=== PATIENT | male | born 2005 | race Two or more races ===

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

== ENCOUNTER 2024-09-28 02:31 | Emergency (ER) | payer OTHER ==
[~2024-09-28] VITALS: Ht 180.3 cm; Wt 77.1 kg
[2024-09-28] MEDS ORDERED: METOCLOPRAMIDE HCL 5 MG/ML VIAL IM STA (03:17)
[2024-09-28] MEDS ORDERED: 0.9 % SODIUM CHLORIDE 1,000 ML IV STA (03:19)
[2024-09-28] MEDS ORDERED: PROMETHAZINE HCL 50 MG/ML AMPUL IM STA (03:19)
[2024-09-28] MEDS ORDERED: FAMOtidine 10 MG/ML (4ML VIAL) IV PUSH STA (03:20)
[2024-09-28] MEDS ORDERED: HYOSCYAMINE SULFATE 0.125 MG TAB.SUBL SL ONE (03:30)
== END 2024-09-28 08:06 | disposition home or self-care (01) ==
LOC: ER 02:33
DX: K29.70 Gastritis, unspecified, without bleeding (principal); K30 Functional dyspepsia